=== PATIENT | male | born 1980 | race Two or more races ===

== ENCOUNTER 2022-05-23 03:50 | Emergency (ER) | payer SELFPAY ==
[~2022-05-23] VITALS: Ht 180.3 cm; Wt 73.0 kg
[2022-05-23] MEDS ORDERED: SODIUM CHLORIDE 0.9% 1,000 ML IV ONE (05:15)
[2022-05-23 05:38] LABS: BASOPHILS % 0.3 % (0.0-2.0); EOSINOPHILS % 2.4 % (0.0-5.0); HEMATOCRIT. 39.9 % (42.0-52.0); HEMOGLOBIN. 13.3 g/dL (14.0-18.0); LYMPHOCYTES % 18.7 % (20.0-50.0); MEAN CORPUSCULAR HEMOGLOBIN 26.8 pg (28.0-32.0); MEAN CORPUSCULAR VOLUME 80.5 fL (80.0-94.0); MEAN PLATELET VOLUME 8.8 fl (7.4-10.4); MONOCYTES % 5.6 % (2.0-8.0); PLATELET 196 x1000/uL (130-400); RED BLOOD CELL COUNT 4.96 mill/uL (4.7-6.1); RED CELL DISTRIBUTION WIDTH 13.4 % (11.6-14.6)
[2022-05-23 05:45] LABS: CHLORIDE 102 mEq/L (98-107)
[2022-05-23 06:04] LABS: BETA HYDROXYBUTYRATE 0.2 mMol/L (0.0-0.3)
[2022-05-23] MEDS ORDERED: INSULIN REGULAR (HUMULIN R) 300UNITS/3ML VIAL IV STA ×2 (06:21→08:59)
[2022-05-23 08:18] LABS: CLARITY URINE CLEAR (CLEAR); COLOR URINE YELLOW (YELLOW); KETONES URINE 1+ (NEGATIVE); LEUKOCYTE ESTERASE URINE NEGATIVE (NEGATIVE); NITRITE URINE NEGATIVE (NEGATIVE); OCCULT BLOOD URINE NEGATIVE (NEGATIVE); PH URINE 7.5 (4.5-8.0); PROTEIN URINE NEGATIVE (NEGATIVE); SPECIFIC GRAVITY URINE 1.026 (1.005-1.030); UROBILINOGEN URINE 0.2 E.U./dL (0.2-1.0)
[2022-05-23 10:03] VITALS: BP 123/71
== END 2022-05-23 10:28 ==
LOC: ER 03:50
DX: E11.65 Type 2 diabetes mellitus with hyperglycemia (principal); F15.10 Other stimulant abuse, uncomplicated
CPT/HCPCS: 36415; 80053; 81003; 82010; 82962; 85025; 96374; 96376; 99284; J1815; J7030